=== PATIENT | female | born 1960 | race Caucasian/White ===

== ENCOUNTER 2017-05-03 07:00 | Day surgery (SDC) | payer OTHER ==
[~2017-05-03 07:00] MED LIST: ATROPINE 1 MG/10 ML SYRINGE IV; DIPHENHYDRAMINE 50 MG INJ IV; EPHEDrine SULFATE 50 MG/5 ML SYG IV; FENTAnyl 50 MCG/ML VIAL IV; LABETALOL HCL 20MG INJ IV; MEPERIDINE 25 MG INJ IV; MIDAZOLAM 1 MG/ML 2 ML INJ IV; ONDANSETRON 4 MG INJ IV; SUCCINYLCHOLINE CHLORIDE 100 MG/5 ML SYG IV; hydrALAzine 20 MG INJ IV
[2017-05-03] MEDS ORDERED: NEOSTIGMINE 3 MG/3 ML SYRINGE (09:16)
[2017-05-03] MEDS ORDERED: PROPOFOL 20 ML (09:16)
[2017-05-03] MEDS ORDERED: ROCURONIUM 50 MG INJ (09:16)
[2017-05-03] MEDS ORDERED: MIDAZOLAM 1 MG/ML 2 ML INJ (09:16)
[2017-05-03] MEDS ORDERED: DEXAMETHASONE 4 MG/ML 1 ML INJ (09:16)
[2017-05-03] MEDS ORDERED: GLYCOPYRROLATE 0.4 MG INJ (09:16)
[2017-05-03] MEDS ORDERED: FENTAnyl 50 MCG/ML VIAL (09:16)
[2017-05-03] MEDS ORDERED: ONDANSETRON 4 MG INJ (09:16)
[2017-05-03] MEDS ORDERED: LIDOCAINE 2% (SDV) 5 ML INJ (09:16)
[2017-05-03] MEDS: morphine SULFATE/PF (10 MG/10 ML) INJ (09:52)
[2017-05-03] MEDS: EPINEPHrine 1 MG INJ (09:52)
[2017-05-03] MEDS: FENTAnyl 50 MCG/ML VIAL IV (11:03)
[2017-05-03] MEDS ORDERED: hydrOXYzine HCL 25 MG TAB PO (11:30)
== END 2017-05-03 12:25 | disposition home or self-care (01) ==
LOC: SDS 07:00
DX: M23.242 Derangement of anterior horn of lateral meniscus due to old tear or injury, left knee (principal); M23.232 Derangement of other medial meniscus due to old tear or injury, left knee; E66.9 Obesity, unspecified; Z68.31 Body mass index [BMI] 31.0-31.9, adult; J45.909 Unspecified asthma, uncomplicated
CPT/HCPCS: 29880

== ENCOUNTER 2017-12-06 05:54 | Day surgery (SDC) | payer OTHER ==
[2017-12-06] MEDS ORDERED: CEFAZOLIN 2 GM/50 ML (PMX) 50 ML IVPB (06:00)
[2017-12-06] MEDS ORDERED: MIDAZOLAM 1 MG/ML 2 ML INJ (07:39)
[2017-12-06] MEDS ORDERED: ROPIVACAINE 0.5 % 30 ML VIAL (07:40)
[2017-12-06] MEDS ORDERED: SUCCINYLCHOLINE CHLORIDE 100 MG/5 ML SYG IV (08:23)
[2017-12-06] MEDS ORDERED: ROCURONIUM 50 MG INJ (08:24)
[2017-12-06] MEDS ORDERED: SUGAMMADEX SODIUM 200 MG/2 ML VIAL IV (08:24)
[2017-12-06] MEDS ORDERED: CEFAZOLIN 1 GM INJ (08:24)
[2017-12-06] MEDS ORDERED: LIDOCAINE 100 MG SYRINGE (08:24)
[2017-12-06] MEDS ORDERED: PROPOFOL 20 ML (08:24)
[2017-12-06] MEDS: EPINEPHrine 1 MG/ML 30 ML INJ IRR (08:43)
[2017-12-06] MEDS ORDERED: ONDANSETRON 4 MG INJ IV (09:00)
[2017-12-06] MEDS ORDERED: HYDROmorphONE 1 MG/5 ML IV SYRINGE IV ×3 (09:00)
[2017-12-06] MEDS ORDERED: METOCLOPRAMIDE 10 MG INJ IV (09:00)
[2017-12-06] MEDS ORDERED: ALBUTEROL 0.083% (NEB) 2.5 MG/3 ML AMP HHN (09:00)
[2017-12-06] MEDS ORDERED: FENTAnyl 50 MCG/ML VIAL IV ×3 (09:00)
[2017-12-06] MEDS ORDERED: DIPHENHYDRAMINE 50 MG INJ IV (09:00)
[2017-12-06] MEDS: MEPERIDINE 25 MG INJ IV (11:13)
[2017-12-06] MEDS: morphine SULFATE/PF (10 MG/10 ML) INJ (12:10)
== END 2017-12-06 13:55 | disposition home or self-care (01) ==
LOC: SDS 05:54
DX: S43.431A Superior glenoid labrum lesion of right shoulder, initial encounter (principal); M75.101 Unspecified rotator cuff tear or rupture of right shoulder, not specified as traumatic; M65.811 Other synovitis and tenosynovitis, right shoulder; J45.909 Unspecified asthma, uncomplicated; X58.XXXA Exposure to other specified factors, initial encounter; Y93.89 Activity, other specified; Y92.89 Other specified places as the place of occurrence of the external cause; Y99.8 Other external cause status
CPT/HCPCS: 29806

== ENCOUNTER 2018-04-25 05:33 | Inpatient (IN) | payer OTHER ==
[2018-04-25] MEDS ORDERED: HIP PAIN COCKTAIL (CEFUROXIME) INJ (06:00)
[2018-04-25] MEDS: CEFAZOLIN 1 GM/50 ML (PMX) 50 ML IVPB (06:00)
[2018-04-25] MEDS: TRANEXAMIC ACID 1,000 MG in NS 100 ML INTRA-OP X1 IVPB (06:00)
[2018-04-25] MEDS: LANSOPRAZOLE 30 MG CAP PO (06:44)
[2018-04-25] MEDS: oxyCODONE (CR) 10 MG TAB [oxyCONTIN] PO (06:44)
[2018-04-25] MEDS: ACETAMINOPHEN 500 MG TAB PO (06:44)
[2018-04-25] MEDS: DEXAMETHASONE 4 MG/ML 1 ML INJ IV (06:45)
[2018-04-25] MEDS: ONDANSETRON 4 MG INJ IV ×2 (06:45→10:37)
[2018-04-25] MEDS ORDERED: BACITRACIN 50000 UNITS INJ (06:47)
[2018-04-25] MEDS ORDERED: POLYMYXIN B 500000 UNIT INJ (06:49)
[2018-04-25] MEDS: LACTATED RINGER'S 1,000 ML IV* (06:52)
[2018-04-25] MEDS ORDERED: SEVOFLURANE 15 MIN (07:00)
[2018-04-25] MEDS ORDERED: NA PHOSPHATE/BIPHOS 133 ML ENEMA PR (07:30)
[2018-04-25] MEDS ORDERED: oxyCODONE 5 MG TAB PO (07:30)
[2018-04-25] MEDS ORDERED: NALOXONE (0.4 MG/ML) INJ IV (07:30)
[2018-04-25] MEDS ORDERED: SENNA/DOCUSATE NA (8.6MG/50MG) TAB PO (07:30)
[2018-04-25] MEDS ORDERED: MAGNESIUM HYDROXIDE 30ML CUP PO (07:30)
[2018-04-25] MEDS ORDERED: BISACODYL 10 MG SUPP PR (07:30)
[2018-04-25] MEDS ORDERED: BETHANECHOL 25 MG TAB PO (07:30)
[2018-04-25] MEDS ORDERED: NACL 0.9% 3 ML SYG IV (07:30)
[2018-04-25] MEDS ORDERED: morphine SULFATE/PF (10 MG/10 ML) INJ (07:35)
[2018-04-25] MEDS ORDERED: FENTAnyl 50 MCG/ML VIAL (07:35)
[2018-04-25] MEDS ORDERED: MIDAZOLAM 1 MG/ML 2 ML INJ (07:35)
[2018-04-25] MEDS: TRANEXAMIC ACID 1,000 MG in NS 100 ML PRE-OP X1 IVPB (08:04)
[2018-04-25] MEDS: GABAPENTIN 100 MG CAP PO ×3 (09:00→22:02)
[2018-04-25] MEDS: BACITRACIN 50000 UNITS INJ IRR (09:15)
[2018-04-25] MEDS: POLYMYXIN B 500000 UNIT INJ IRR (09:15)
[2018-04-25] MEDS ORDERED: LIDOCAINE 2% (SDV) 5 ML INJ (09:29)
[2018-04-25] MEDS ORDERED: PROPOFOL 20 ML (09:29)
[2018-04-25] MEDS ORDERED: ROCURONIUM 50 MG INJ (09:29)
[2018-04-25] MEDS ORDERED: CEFAZOLIN 1 GM INJ (09:30)
[2018-04-25] MEDS ORDERED: ONDANSETRON 4 MG INJ (09:30)
[2018-04-25] MEDS: ASPIRIN 81 MG TAB PO (10:13)
[2018-04-25] MEDS: DOCUSATE SODIUM 100 MG CAP PO (10:14)
[2018-04-25] MEDS: CEFAZOLIN 2 GM/50 ML (PMX) 50 ML IVPB ×2 (10:14→17:16)
[2018-04-25] MEDS ORDERED: DIPHENHYDRAMINE 50 MG INJ IV (10:30)
[2018-04-25] MEDS ORDERED: FENTAnyl 50 MCG/ML VIAL IV (10:30)
[2018-04-25] MEDS ORDERED: HYDROmorphONE 1 MG/5 ML IV SYRINGE IV ×2 (10:30)
[2018-04-25] MEDS ORDERED: MEPERIDINE 25 MG INJ IV (10:30)
[2018-04-25] MEDS: SOD CHLORIDE 0.9% 1,000 ML IV ×3 (12:08→19:50)
[2018-04-25] MEDS ORDERED: GABAPENTIN 300 MG CAP PO (13:00)
[2018-04-25] MEDS: oxyCODONE 5 MG TAB PO ×2 (17:23→22:03)
[2018-04-25] MEDS: ATORVASTATIN 10 MG TAB PO (22:02)
[2018-04-25] MEDS: MONTELUKAST 10 MG TAB PO (22:02)
[2018-04-25] MEDS: FLUOCINONIDE 0.05% TOP (22:02)
[2018-04-25] MEDS: DIPHENHYDRAMINE 50 MG INJ IV (22:53)
[2018-04-26] MEDS: SOD CHLORIDE 0.9% 1,000 ML IV ×2 (01:09→20:50)
[2018-04-26] MEDS: CEFAZOLIN 2 GM/50 ML (PMX) 50 ML IVPB (01:10)
[2018-04-26] MEDS: oxyCODONE 5 MG TAB PO ×6 (02:06→21:42)
[2018-04-26 05:21] LABS: ADD MAN DIFF? NO
[2018-04-26 05:22] LABS: WHITE BLOOD COUNT 8.3 10^3/ul (4.8-10.8)
[2018-04-26 05:22] LABS: BASOPHILS % 0.2 % (0.0-2.0); HEMATOCRIT 28.4 % (37.0-47.0); HEMOGLOBIN 9.3 g/dl (12.0-16.0); LYMPHOCYTES # 1.4 10^3/ul (0.8-2.9); LYMPHOCYTES % 16.8 % (15.0-51.0); MEAN CORPUSCULAR HEMOGLOBIN 30.1 pg (29.0-33.0); MEAN CORPUSCULAR HGB CONC 32.7 g/dl (32.0-37.0); MEAN CORPUSCULAR VOLUME 91.9 fl (82.0-101.0); MEAN PLATELET VOLUME 12.2 fl (7.4-10.4); MONOCYTE # 0.7 10^3/ul (0.3-0.9); MONOCYTES % 8.5 % (0.0-11.0); NEUTROPHIL # 6.1 10^3/ul (1.6-7.5); NEUTROPHILS % 74.1 % (39.0-77.0); PLATELET COUNT 139 10^3/UL (140-415); RED BLOOD COUNT 3.09 10^6/ul (4.20-5.40); RED CELL DISTRIBUTION WIDTH 13.5 % (11.5-14.5)
[2018-04-26 05:57] LABS: CHOLESTEROL 180 mg/dl (100-200)
[2018-04-26 05:57] LABS: HDL CHOLESTEROL 45 mg/dl (37-92); LDL CHOLESTEROL,CALCULATED 101 mg/dl; TRIGLYCERIDES 168 mg/dl (0-149)
[2018-04-26] MEDS: DIPHENHYDRAMINE 50 MG INJ IV ×2 (06:01→10:05)
[2018-04-26 06:04] LABS: ANION GAP 7 (5-13); BLOOD UREA NITROGEN 14 mg/dl (7-20); CALCIUM 8.3 mg/dl (8.4-10.2); CARBON DIOXIDE 26 mmol/L (21-31); CHLORIDE 106 mmol/L (97-110); CREATININE 0.76 mg/dl (0.44-1.00); Estimated GFR > 60 mL/min (>60); GLUCOSE 166 mg/dl (70-220); POTASSIUM 3.9 mmol/L (3.5-5.1); SODIUM 139 mmol/L (135-144)
[2018-04-26 07:14] LABS: HEMOGLOBIN A1C 5.4 % (0-5.9)
[2018-04-26] MEDS ORDERED: ONDANSETRON 4 MG INJ IV (07:30)
[2018-04-26] MEDS: DOCUSATE SODIUM 100 MG CAP PO ×2 (08:39→21:41)
[2018-04-26] MEDS: OXYBUTYNIN (XL) 5 MG TAB PO (08:39)
[2018-04-26] MEDS: GABAPENTIN 100 MG CAP PO ×3 (08:39→21:41)
[2018-04-26] MEDS: ASPIRIN (EC) 81 MG TAB PO ×2 (08:39→21:41)
[2018-04-26] MEDS: CELECOXIB 100 MG CAP PO ×2 (08:39→21:41)
[2018-04-26] MEDS: FLUOCINONIDE 0.05% TOP ×3 (08:40→21:42)
[2018-04-26] MEDS: DIPHENHYDRAMINE 25 MG CAP PO (14:48)
[2018-04-26] MEDS: ERGOCALCIFEROL (8000 UNITS/ML PO SYG) PO (16:23)
[2018-04-26] MEDS: ATORVASTATIN 10 MG TAB PO (21:41)
[2018-04-26] MEDS: MONTELUKAST 10 MG TAB PO (21:41)
[2018-04-27] MEDS: oxyCODONE 5 MG TAB PO ×3 (02:48→13:18)
[2018-04-27 04:49] LABS: ADD MAN DIFF? NO
[2018-04-27 04:53] LABS: WHITE BLOOD COUNT 6.9 10^3/ul (4.8-10.8)
[2018-04-27 04:53] LABS: BASOPHILS % 0.3 % (0.0-2.0); EOSINOPHILS # 0.1 10^3/ul (0.0-0.5); HEMATOCRIT 27.6 % (37.0-47.0); HEMOGLOBIN 9.1 g/dl (12.0-16.0); LYMPHOCYTES # 2.2 10^3/ul (0.8-2.9); LYMPHOCYTES % 31.5 % (15.0-51.0); MEAN CORPUSCULAR HEMOGLOBIN 30.1 pg (29.0-33.0); MEAN CORPUSCULAR VOLUME 91.4 fl (82.0-101.0); MEAN PLATELET VOLUME 11.7 fl (7.4-10.4); MONOCYTE # 0.8 10^3/ul (0.3-0.9); MONOCYTES % 11.6 % (0.0-11.0); NEUTROPHIL # 3.8 10^3/ul (1.6-7.5); NEUTROPHILS % 55.2 % (39.0-77.0); PLATELET COUNT 118 10^3/UL (140-415); RED BLOOD COUNT 3.02 10^6/ul (4.20-5.40); RED CELL DISTRIBUTION WIDTH 13.9 % (11.5-14.5)
[2018-04-27] MEDS: PANTOPRAZOLE (EC) 40 MG TAB PO (05:08)
[2018-04-27 05:11] LABS: ANION GAP 6 (5-13); BLOOD UREA NITROGEN 13 mg/dl (7-20); CALCIUM 8.6 mg/dl (8.4-10.2); CARBON DIOXIDE 32 mmol/L (21-31); CHLORIDE 103 mmol/L (97-110); CREATININE 0.75 mg/dl (0.44-1.00); Estimated GFR > 60 mL/min (>60); GLUCOSE 106 mg/dl (70-220); POTASSIUM 3.5 mmol/L (3.5-5.1); SODIUM 141 mmol/L (135-144)
[2018-04-27] MEDS: OXYBUTYNIN (XL) 5 MG TAB PO (08:59)
[2018-04-27] MEDS: ASPIRIN (EC) 81 MG TAB PO (08:59)
[2018-04-27] MEDS: ERGOCALCIFEROL (8000 UNITS/ML PO SYG) PO (08:59)
[2018-04-27] MEDS: GABAPENTIN 100 MG CAP PO ×2 (08:59→13:00)
[2018-04-27] MEDS: CELECOXIB 100 MG CAP PO (08:59)
[2018-04-27] MEDS: DOCUSATE SODIUM 100 MG CAP PO (08:59)
[2018-04-27] MEDS: SOD CHLORIDE 0.9% 1,000 ML IV (09:17)
[2018-04-27] MEDS: FLUOCINONIDE 0.05% TOP ×2 (10:27→13:00)
== END 2018-04-27 16:05 | disposition home health service (06) | DRG 470 ==
LOC: REC 05:33 → MS1 11:30
PROC: 0SRD069 Replacement of Left Knee Joint with Oxidized Zirconium on Polyethylene Synthetic Substitute, Cemented, Open Approach (ICD-10-PCS; principal; 2018-04-25 07:29)
DX: M17.12 Unilateral primary osteoarthritis, left knee (principal); E78.5 Hyperlipidemia, unspecified; J45.909 Unspecified asthma, uncomplicated; M23.206 Derangement of unspecified meniscus due to old tear or injury, right knee
CPT/HCPCS: 73560; 80048; 80061; 83036; 85025; 87081; 88304; 88311; 97110; 97116; 97162; 97165; 97530; 97535

== ENCOUNTER 2018-06-27 05:54 | Day surgery (SDC) | payer OTHER ==
[2018-06-27] MEDS ORDERED: MIDAZOLAM 1 MG/ML 2 ML INJ (07:26)
[2018-06-27] MEDS ORDERED: METOCLOPRAMIDE 10 MG INJ (07:26)
[2018-06-27] MEDS ORDERED: DEXAMETHASONE 4 MG/ML 5 ML INJ (07:26)
[2018-06-27] MEDS ORDERED: PROPOFOL 20 ML (07:26)
[2018-06-27] MEDS ORDERED: ONDANSETRON 4 MG INJ (07:26)
[2018-06-27] MEDS ORDERED: ROPIVACAINE 0.5 % 30 ML VIAL (07:26)
[2018-06-27] MEDS ORDERED: LABETALOL HCL 20MG INJ IV (07:30)
[2018-06-27] MEDS ORDERED: ALBUTEROL 0.083% (NEB) 2.5 MG/3 ML AMP HHN (07:30)
[2018-06-27] MEDS ORDERED: KETOROLAC 30 MG INJ IV (07:30)
[2018-06-27] MEDS ORDERED: DIPHENHYDRAMINE 50 MG INJ IV (07:30)
[2018-06-27] MEDS ORDERED: hydrALAzine 20 MG INJ IV (07:30)
[2018-06-27] MEDS ORDERED: OXYCODONE/ACETAMINOPHEN (5/325) TAB PO (07:30)
[2018-06-27] MEDS ORDERED: HYDROmorphONE 1 MG/5 ML IV SYRINGE IV ×2 (07:30)
[2018-06-27] MEDS ORDERED: CEFAZOLIN 1 GM INJ (07:54)
[2018-06-27] MEDS ORDERED: KETOROLAC 30 MG INJ (07:56)
[2018-06-27] MEDS ORDERED: FAMOTIDINE 20 MG INJ (08:02)
[2018-06-27] MEDS ORDERED: HYDROmorphONE 2 MG/ML SYG (08:06)
[2018-06-27] MEDS: SODIUM CL BACTERIOSTATIC 30 ML INJ (08:13)
[2018-06-27] MEDS: morphine SULFATE/PF (10 MG/10 ML) INJ (08:13)
[2018-06-27] MEDS ORDERED: GLYCOPYRROLATE 0.4 MG INJ (08:42)
[2018-06-27] MEDS ORDERED: NEOSTIGMINE 10 MG INJ (08:42)
[2018-06-27] MEDS: CEFAZOLIN 2 GM/50 ML (PMX) 50 ML IVPB (09:02)
[2018-06-27] MEDS: ONDANSETRON 4 MG INJ IV (09:08)
[2018-06-27] MEDS: MEPERIDINE 25 MG INJ IV (09:08)
[2018-06-27] MEDS: HYDROmorphONE 1 MG/5 ML IV SYRINGE IV (09:09)
[2018-06-27] MEDS: OXYCODONE/ACETAMINOPHEN (5/325) TAB PO (09:16)
== END 2018-06-27 11:30 | disposition home or self-care (01) ==
LOC: SDS 05:54
DX: M23.211 Derangement of anterior horn of medial meniscus due to old tear or injury, right knee (principal); M23.241 Derangement of anterior horn of lateral meniscus due to old tear or injury, right knee; M94.261 Chondromalacia, right knee; M65.861 Other synovitis and tenosynovitis, right lower leg; J44.9 Chronic obstructive pulmonary disease, unspecified
CPT/HCPCS: 29880